=== PATIENT | male | born 1955 | race Caucasian/White ===

== ENCOUNTER 2018-01-13 10:32 | Outpatient (REF) | payer BC, SELFPAY ==
[2018-01-13 21:45] LABS: Anion Gap 12.5 mmol/L (3-11); BUN 13 mg/dL (7-18); CO2 24.5 mmol/L (21.0-32.0); CREATININE 1.07 mg/dL (0.70-1.30); Calcium 8.7 mg/dL (8.5-10.1); Chloride 101 mmol/L (98-107); Cholesterol 186 mg/dL (50-200); Glucose 122 mg/dL (70-100); HDL Cholesterol 20 mg/dL (40-60); LDL CHOLESTEROL 82 mg/dL (<100); Potassium 3.7 mmol/L (3.5-5.1); Sodium 138 mmol/L (136-145); Triglyceride 286 mg/dL (30-150)
[2018-01-13 22:02] LABS: Uric Acid 9.4 mg/dL (3.5-7.2)
== END 2018-01-13 10:52 ==
LOC: NCHCN 10:32
PROVIDERS: Visit Provider Specialist/Technologist Athletic Trainer
DX: I10 Essential (primary) hypertension (principal); Z00.00 Encounter for general adult medical examination without abnormal findings; M1A.9XX0 Chronic gout, unspecified, without tophus (tophi)
CPT/HCPCS: 80048; 80061; 83721; 84550

== ENCOUNTER 2019-11-07 11:20 | Outpatient (REF) | payer MEDICAID, SELFPAY ==
[2019-11-07 20:14] LABS: ALT 97 U/L (16-63); AST 64 U/L (15-37); Albumin 4.3 g/dL (3.4-5.0); Alkaline Phosphatase 113 U/L (46-116); Anion Gap 14.3 mmol/L (3-11); BUN 10 mg/dL (7-18); Bilirubin, Total 0.6 mg/dL (0.2-1.0); CO2 24.7 mmol/L (21.0-32.0); CREATININE 0.75 mg/dL (0.70-1.30); Calcium 9.4 mg/dL (8.5-10.1); Calculated LDL 78 mg/dL (<100); Chloride 100 mmol/L (98-107); Cholesterol 145 mg/dL (<200); Glucose 104 mg/dL (74-106); HDL Cholesterol 54 mg/dL (40-60); Potassium 3.8 mmol/L (3.5-5.1); Sodium 139 mmol/L (136-145); Total Protein 7.7 g/dL (6.4-8.2); Triglyceride 65 mg/dL (<150)
== END 2019-11-07 11:40 ==
LOC: NCHCN 11:20
PROVIDERS: Visit Provider Nurse Practitioner Family
DX: I10 Essential (primary) hypertension (principal); Z00.00 Encounter for general adult medical examination without abnormal findings
CPT/HCPCS: 80053; 80061; 83036

== ENCOUNTER 2021-12-02 13:45 | Outpatient (REF) | payer MEDICAID, SELFPAY ==
[2021-12-02 16:34] LABS: ALT 97 U/L (16-63); AST 89 U/L (15-37); Alkaline Phosphatase 109 U/L (46-116); Anion Gap 10.3 mmol/L (3-11); BUN 12 mg/dL (7-18); Bilirubin, Total 0.8 mg/dL (0.2-1.0); CO2 27.7 mmol/L (21.0-32.0); CREATININE 1.1 mg/dL (0.70-1.30); Chloride 103 mmol/L (98-107); Estimated GFR 74.96 (mL/min/1.73m2); Glucose 113 mg/dL (74-106); Potassium 3.7 mmol/L (3.5-5.1); Sodium 141 mmol/L (136-145); Total Protein 8.2 g/dL (6.4-8.2)
== END 2021-12-02 13:46 | disposition home or self-care (01) ==
LOC: NCHCN 13:45
PROVIDERS: Visit Provider Nurse Practitioner Family
DX: I10 Essential (primary) hypertension (principal); R35.1 Nocturia; M1A.9XX0 Chronic gout, unspecified, without tophus (tophi)
CPT/HCPCS: 80053

== ENCOUNTER 2022-10-02 19:40 | Emergency (ER) | payer MEDICARE, MEDICAID, SELFPAY ==
[2022-10-02] VITALS (59 sets, daily range): BP systolic 100–133; BP diastolic 46–81; PULSE 92–109; RESP 6–30; TEMP 36.3; O2SAT 96–100
--- NOTE | 2022-10-02 20:00 | RT.EKG_ITS ---
APPROVED REPORT Exam: Resting ECG Reason for Exam: SOB Patient Location: E HR:100 bpm ECG Measurements Heart Rate [address] 146 P 73 QRSd 96 QRS 24 QT 354 T [id number] QTc 457 Conclusion Sinus tachycardia...rate> 99 Nonspecific T abnormalities, lateral leads...T <-0.10mV, I aVL V5 V6 No STEMI. No previous available
--- NOTE | 2022-10-02 20:00 | DI.CT_ITS ---
Exam(s) CT HEAD CERVICAL SPINE WO EXAM: CT HEAD CERVICAL SPINE WO CLINICAL HISTORY: altered MS. TECHNIQUE: Imaging Protocol: Axial computed tomography images with coronal and sagittal reformatted images were created and reviewed COMPARISON: No exams were available for comparison FINDINGS: BRAIN: There are no skull fractures nor fluid in the visualized paranasal sinuses. There is no evidence of intracranial hemorrhage, mass effect, or shift of midline structures. There are no extra-axial fluid collections. The ventricles are not enlarged or shifted and there is no blo od within the ventricular system nor within the basal cisterns. CERVICAL SPINE: There is no evidence of fracture nor listhesis. No significant prevertebral soft tissue swelling. There is reversal of the normal curvature. Significant disc space narrowing evident at C4-5, C5-6 an d C6-7 levels. There is some facet joint arthropathy. There is no significant facet joint malalignment. No significant osseous lesions evident. IMPRESSION: No acute intracranial findings on this noninfused CT scan of the brain. No evidence of cervical spine fracture, malalignment, nor acute compromise of the cervical spinal can al. Multilevel degenerative changes and reversal of the normal curvature. RADIATION DOSE DELIVERED: 1,668.53mGy.cm Total DLP DATA REPOSITORY: All CT scans at this facility are submitted to the National Radiology Data Registry (NRDR) Dose Index Registry (DIR) with the [employer] (A[employer]). RADIATION OPTIMIZATION: All CT scans at this facility use at least one of these dose optimization te chniques: automated exposure control; mA and/or kV adjustment per patient size (includes targeted exa ms where dose is matched to clinical indication); or iterative reconstruction.
--- NOTE | 2022-10-02 20:03 | DI.CT_ITS ---
Exam(s) CT THORAX ABD/PEL CTA EXAM: CT THORAX ABD/PEL CTA CLINICAL HISTORY: rule out PE, GI bleed. TECHNIQUE: Imaging Protocol: Axial computed tomography images with coronal and sagittal reformatted images were created and reviewed CONTRAST MATERIAL: Intravenous: Omnipaque 350 Contrast volume:100 ml Oral: None COMPARISON: No exams were available for comparison FINDINGS: CHEST: AORTA: Diameter of the ascending thoracic aorta is upper normal. There is no evidence of aortic diss ection. No significant aneurysmal dilatation of the thoracic and abdominal aorta and aortoiliac segm ents are patent. Celiac and SMA patent. Renal arteries patent. CAT patent. Aortic bifurcation pat ent. No significant aneurysms in the iliac vessels. Internal iliac arteries. LUNGS: There are extensive infiltrates evident in both upper lobes as well as within the superior seg ments of both lower lobes. No associated pleural effusions. There is sparing of the right middle lo be and lingular segment of the left lung and there is relative sparing of the basal segments of both lower lobes.. There are no pleural effusions. No hilar nor mediastinal adenopathy evident. MEDIASTINUM: There is no hilar nor mediastinal adenopathy. Calcified nodule noted in the left thyroid lobe. CARDIAC: Mild cardiomegaly. No pericardial effusion. AORTA: See above.There is no evidence of aortic dissection. PULMONARY ARTERIES: No central emboli. Peripheral arteries not opacified and abundant motion artifac t prevents visualization. ABDOMEN: Images degraded by significant motion artifact. There is mild ascites perihepatic and perisplenic. LIVER: No obvious focal hepatic lesions nor dilated intrahepatic ducts. GALLBLADDER/BILIARY: No obvious gallbladder pathology. CBD is not dilated. PANCREAS: No evidence of pancreatic mass nor dilatation of the pancreatic duct. SPLEEN: Spleen is not enlarged. There are no intrasplenic lesions. ADRENALS: There are no significant adrenal masses. KIDNEYS: There is moderate bilateral hydronephrosis and hydroureter. The urinary bladder is grossly distended. Prostate gland is enlarged, measuring 5 by 4.5 cm. No calculi nor hydronephrosis. No michael id renal masses. ABDOMINAL AORTA: The abdominal aorta is not enlarged. LYMPH NODES: There is no retroperitoneal nor para-aortic adenopathy. No obvious mesenteric masses. ABDOMINAL WALL: There is an anterior abdominal wall umbilical hernia. This contains a bowel loop. N o obvious bowel obstruction. GI: There is no evidence of bowel obstruction, free air, nor abscess. PELVIS: LYMPH NODES: There is no intrapelvic nor inguinal adenopathy. GI: Difficult to identify the appendix.Colitis pattern versus under distension. No obvious diverticu litis evident URINARY BLADDER: Grossly distended REPRODUCTIVE: Enlarged measuring 5 x 4.5 cm. OSSEOUS: No significant osseous lesions. Multilevel Schmorl's node superior endplate invagination evident in the upper lumbar spine. No acute compression fractures evident. IMPRESSION: 1. Extensive bilateral pulmonary infiltrates consistent with extensive pneumonia involving both upper lobes and superior segments of both lower lobes. No pleural effusions evident. No obvious intratho racic adenopathy. 2. No evidence of aortic dissection. No aneurysm. 3. Severe distention of the urinary bladder which appears to be related to enlarged prostate gland an d there is symmetrical moderate-severe bilateral hydronephrosis and hydroureter. 4. Thickening of the entire colon wall which is either related to element of colitis or related to la ck of distention with oral contrast. Difficult to assess given the amount of motion artifact here. There is mild ascites. RADIATION DOSE DELIVERED: 807.52mGy.cm Total DLP DATA REPOSITORY: All CT scans at this facility are submitted to the National Radiology Data Registry (NRDR) Dose Index Registry (DIR) with the [employer] (ACR). RADIATION OPTIMIZATION: All CT scans at this facility use at least one of these dose optimization te chniques: automated exposure control; mA and/or kV adjustment per patient size (includes targeted exa ms where dose is matched to clinical indication); or iterative reconstruction.
[2022-10-02 20:23] LABS: Abs Immature Grans 0.54 10^3/uL (0.0-0.06); HCT 25.3 % (40.0-50.0); MCH 31.1 pg (27.0-33.0); MCHC 35.6 % (32.0-36.0); MCV 88 fL (80-95); MPV 8.6 fL (8.0-11.0); Platelet Count 181 10^3/uL (130-400); RBC 2.89 10^6/uL (4.36-5.78); RDW 12.5 % (11.8-14.1); RDW-SD 40.1 fL
[2022-10-02 20:35] LABS: INR 1.6 (0.9-1.1); Prothrombin Time 16.5 sec (9.3-11.0)
[2022-10-02 20:37] LABS: PTT Activated 43.2 sec (21.5-31.9)
[2022-10-02 20:38] LABS: Ammonia 95 umol/L (11-32)
[2022-10-02 20:39] LABS: ALT 22 U/L (16-63); AST 40 U/L (15-37); Albumin 3.3 g/dL (3.4-5.0); Alkaline Phosphatase 127 U/L (46-116); Bilirubin, Total 0.5 mg/dL (0.2-1.0); Calcium 8.1 mg/dL (8.5-10.1); Chloride 100 mmol/L (98-107); Glucose 111 mg/dL (74-106); Potassium 5.1 mmol/L (3.5-5.1); Sodium 139 mmol/L (136-145); Total Protein 7.4 g/dL (6.4-8.2)
[2022-10-02 20:40] LABS: Absolute Basophil Count 0.23 10^3/uL (0.0-0.2); Absolute Eosinophil Count 0.23 10^3/uL (0.0-0.7); Absolute Lymphocyte Count 0.46 10^3/uL (1.2-3.4); Absolute Monocyte Count 1.39 10^3/uL (0.1-0.8); Absolute Neutrophil Count 20.88 10^3/uL (1.2-6.7); Bands % 1
[2022-10-02 20:41] LABS: Diff Comment Manual Differential; Polychromasia Present
[2022-10-02 20:44] LABS: Troponin I 77 ng/L (<or=60)
[2022-10-02 20:46] LABS: Estimated GFR 1.96 (mL/min/1.73m2)
[2022-10-02 20:47] LABS: Anion Gap 34.00001 mmol/L (3-11); BUN 188 mg/dL (7-18); CO2 < 5.0 mmol/L (21.0-32.0); CREATININE 22.8 mg/dL (0.70-1.30)
[2022-10-02 20:49] LABS: Magnesium 2.6 mg/dL (1.8-2.4); NT-proBNP 11568 pg/mL (<300)
[2022-10-02 20:51] LABS: Lipase > 375 U/L (16-77)
[2022-10-02 20:56] LABS: D-Dimer 6470 ng/mlFEU (<500)
[2022-10-02] MEDS: MAGNESIUM SULFATE 8.12 MEQ, MULTIVITAMIN 10 ML, THIAMINE 100 MG, FOLIC ACID 1 MG in Nor... 168.867 MG IV (21:10)
[2022-10-02] MEDS: Famotidine 20 MG/2 ML VIAL IVP (21:10)
[2022-10-02] MEDS: Omnipaque 350 MG/ML 100 ML BTL IJ (21:15)
[2022-10-02] MEDS: Albuterol/Ipratropium 3 ML UPD VIAL UPD (21:17)
[2022-10-02] MEDS: Normal Saline - Diluent 50 ML VIAL IJ (21:17)
[2022-10-02] MEDS: Octreotide 100 MCG/ML VIAL IVP (21:21)
--- NOTE | 2022-10-02 21:40 | DI.VRAD_ITS ---
PROCEDURE INFORMATION: Exam: CTA Chest With Contrast CTA Abdomen and Pelvis With Contrast Exam date and time: 10/02/2022 9:04 PM Age: 67 years old Clinical indication: Dyspnea and shortness of breath and other: Rule out pe, ? gi bleed TECHNIQUE: Imaging protocol: Computed tomographic angiography of the chest with contrast. Exam focused on the arteries. Computed tomographic angiography of the abdomen and pelvis with contrast. Exam focused on the arteries. 3D rendering (Not supervised by radiologist): MIP and/or 3D reconstructed images were created by the technologist. Radiation optimization: All CT scans at this facility use at least one of these dose optimization techniques: automated exposure control; mA and/or kV adjustment per patient size (includes targeted exams where dose is matched to clinical indication); or iterative reconstruction. Contrast material: OMNI 350; Contrast volume: 100 ml; Contrast route: INTRAVENOUS (IV); COMPARISON: CT HEAD CERVICAL SPINE WO 10/02/2022 8:58 PM FINDINGS: VASCULATURE: Pulmonary arteries: No evidence of pulmonary embolus in the lobar or segmental branches of pulmonary arteries. Study is suboptimal for exclusion of pulmonary embolus in some of the subsegmental branches secondary to motion related artifact seen throughout the study. Aorta: No evidence of aortic dissection or aneurysm. Celiac trunk and mesenteric arteries: No occlusion or significant stenosis. Renal arteries: No occlusion or significant stenosis. Right iliac arteries: No occlusion or significant stenosis. Left iliac arteries: No occlusion or significant stenosis. CHEST: Lungs: Large areas of dense parenchymal disease is seen in bilateral lower lobes and superior segments of bilateral upper lobes. Pleural spaces: Unremarkable. No pneumothorax. No pleural effusion. Heart: Unremarkable. No cardiomegaly. No pericardial effusion. ABDOMEN AND PELVIS: Liver: No mass. Gallbladder and bile ducts: Unremarkable. No calcified stones. No ductal dilation. Pancreas: Unremarkable. No mass. No ductal dilation. Spleen: Spleen is mildly enlarged measuring 13.8 cm in AP dimension. Adrenal glands: Unremarkable. No mass. Kidneys and ureters: See Urinary bladder finding. No mass lesion is seen. No areas of abnormal cortical enhancement in kidneys to suggest pyelonephritis. Stomach and bowel: Diffuse wall thickening is seen in the colon extending from cecum to the rectum. No active extravasation of contrast is seen in the stomach or the colon. Appendix: No evidence of appendicitis. Intraperitoneal space: Small to moderate amount of perihepatic fluid. Finding is consistent with ascites. Small amount of perisplenic fluid. Urinary bladder: Severe bladder distention with moderate to severe bilateral hydronephrosis and hydroureter. Reproductive: Prostate is mildly enlarged measuring 5.5 x 5.2 cm. Lymph nodes: Unremarkable. No enlarged lymph nodes. Bones/joints: Unremarkable. No acute fracture. Soft tissues: Unremarkable. IMPRESSION: 1. Large areas of dense parenchymal disease is seen in bilateral lower lobes and superior segments of bilateral upper lobes. Findings appear to represent mild bacterial pneumonias. 2. Suboptimal evaluation of pulmonary arteries due to motion artifact throughout the study. No evidence of pulmonary embolism seen. 3. Severe bladder distention with moderate to severe bilateral hydronephrosis and hydroureter. Finding is consistent with bladder outlet obstruction. 4. Prostate is mildly enlarged measuring 5.5 x 5.2 cm. 5. Diffuse wall thickening is seen in the colon extending from cecum to the rectum. Finding is consistent with pancolitis. 6. No active extravasation of contrast is seen on the study. Dictated and Authenticated by: Antoine Mcginnis MD. Ordering:SAMANTA Sarabia MD
--- NOTE | 2022-10-02 21:42 | DI.VRAD_ITS ---
PROCEDURE INFORMATION: Exam: CT Head Without Contrast Exam date and time: 10/02/2022 8:58 PM Age: 67 years old Clinical indication: Other: Altered mental status; Other: AMS TECHNIQUE: Imaging protocol: Computed tomography of the head without contrast. COMPARISON: No relevant prior studies available. FINDINGS: Brain: Diffuse cerebral atrophy. This is of [id number] severity. No intracranial hemorrhage. No mass. No edema. No large territory CVA. Cerebral ventricles: No ventriculomegaly. Paranasal sinuses: No sinus air-fluid levels. Mastoid air cells: Visualized mastoid air cells are well aerated. Bones/joints: No skull fracture. Soft tissues: Unremarkable. IMPRESSION: 1. No intracranial hemorrhage. 2. Cerebral atrophy. 3. Motion artifact degradation of image quality. PROCEDURE INFORMATION: Exam: CT Cervical Spine Without Contrast Exam date and time: 10/02/2022 8:58 PM Age: 67 years old Clinical indication: Other: Altered mental status; Other: AMS TECHNIQUE: Imaging protocol: Computed tomography of the cervical spine without contrast. COMPARISON: No relevant prior studies available. FINDINGS: Bones/joints: Degenerative cervical spine changes. No acute fracture. Mid cervical kyphosis with nonspecific appearance. Moderate degenerative disc disease at C3-C4. Severe degenerative disc disease at C4-C5, C5-C6, and C6-C7. Multilevel degenerative facet disease. No facet dislocation or subluxation. Lungs: Lung apices are normal. Soft tissues: Unremarkable. IMPRESSION: 1. Degenerative cervical spine changes. 2. No fracture or dislocation. 3. Motion artifact degradation of image quality. Dictated and Authenticated by: Chas Goodwin MD. Ordering:SAMANTA Sarabia MD
--- NOTE | 2022-10-02 22:05 | ED.PROG_ITS ---
Date of service: 10/02/22 Time of Service: 20:00 Medical Decision Making Lab Data Lab results reviewed: Yes I reviewed the patient's lab results. Lab results narrative: The patient is in renal failure. He is anemic and having active GI bleeding. He is in congestive heart failure and has a positive troponin. His EKG does not show any acute ST elevation. I have spoken with the hospitalist who request that we attempt to transfer the patient. We are sending the patient's CTs and copies of the EKG to [facility] [place] Data Attestation: I personally reviewed and interpreted this ECG (s) as follows: Prior ECG tracings: available for review Narrative The patient is is in renal failure and received IV contrast. I have written for [facility] and I have paged the hospitalist. Discharge Plan Discharge Details Chief Complaint: SOB Primary Care Provider: None,None ED Provider: No Caraballo
[2022-10-02] MEDS: Furosemide 20 MG/2 ML VIAL IVP (22:15)
--- NOTE | 2022-10-02 22:25 | ED.GENADUL_ITS ---
Discharge Plan Disposition Patient Disposition: Transfer-Acute Inpatient Care Specific Acute Inpt Facility: [facility] Discharge Details Clinical Impression: Acute kidney injury, Acute non-Q wave non-ST elevation myocardial infarction (NSTEMI), CHF (congestive heart failure), Pancolitis, Bilateral pneumonia, Acute urinary retention Primary Care Provider: None,None ED Provider: No Caraballo Discharge Data Discharge Physician: No Caraballo Medical Decision Making This is an acutely ill patient who has no prior medical records who presents with shortness of breath and a right swollen lower extremity. He was also short of breath and having active GI bleeding. My plan is to obtain a CT of the head and neck without contrast and CT of the chest abdomen and pelvis with IV contrast to rule out PE. His EKG does not show evidence of ST elevation MN and he is denying any chest pain. The patient's renal function came back after his CT and he is in acute renal failure. He has been discussed with the hospitalist who requested that we transfer him to a another facility and [facility] will be able to take him this evening Differential Diagnosis Differential Diagnosis: PE, CHF, AMI, renal failure, pneumonia Medical Records Medical records reviewed: Yes I reviewed the patient's medical records. Imaging Data Radiologic Study: Imaging: CT Scan Radiologist's impression: CTA chest with IV contrast, CT head with C-spine, CT abdomen and pelvis with IV contrast the patient has large areas of dense parenchymal disease in the bilateral lower lobes and superior segments of the bilateral upper lobes. Findings appear to represent mild bacterial pneumonias. #2 suboptimal evaluation of the pulmonary arteries due to motion artifact throughout the study. No evidence of pulmonary embolism seen. #3 severe bladder distention with moderate to severe bilateral hydronephrosis and hydroureter. Finding is consistent with bladder outlet obstruction. #3 your prostate is mildly enlarged measuring 5.5 x 5.2 cm. #5 diffuse wall thickening is seen in the colon extending from the cecum to the rectum. Finding is consistent with pancolitis. #6 no active extravasation of contrast seen in the study. Head CT #1 no intracranial hemorrhage. #2 cerebral atrophy. #3 Motion artifact degradation of image quality. C-spine impression #1 degenerative C-spine changes. #2 no fracture or dislocation #3 Motion artifact degradation of image quality. HPI General Date/Time Provider Initiated Documentation: 10/02/22 19:58 . HPI Narrative: Time seen was on arrival in bed 8 and then bed 1. Patient is a 67-year-old male who is unable to give us a detailed history and there are no previous medical records available. The patient tells me that his neighbors called EMS because they were concerned because they had not seen him. He was noted to be very short of breath on arrival. He is not sure how long he has been short of breath for. He denies any chest pain. He is only complaining of right leg pain and swelling not associated with trauma. He does have a history of heavy alcohol use but states he has not had anything to drink in several weeks. He is denying any chest pain or falls. He is only on amlodipine but cannot tell me the dose. He tells me he has no history of respiratory issues in the past and has no history of coronary artery disease or MN. He tells me he is not on any therapeutic anticoagulants. The patient's only complaint is of right lower leg pain which is intermittent. The history is limited by the patient's altered mental status. He is oriented to person and place. When asked what year it was he said 1023. General Stated Complaint: SOB GLENNY: 3 Review of Systems Cardiovascular Cardiovascular: Denies chest pain Musculoskeletal Comments: Right calf pain and swelling PFSH All Active Problems (Updated 10/02/22 @ 23:22 by No Caraballo MD) Acute kidney injury (Acute) Acute non-Q wave non-ST elevation myocardial infarction (NSTEMI) (Acute) CHF (congestive heart failure) (Chronic) Pancolitis (Acute) Bilateral pneumonia (Acute) Acute urinary retention (Acute) Social History Smoking/Tobacco Use Status: Never Smoking risk assessment performed?: Yes Substance use type: marijuana Housing: house Exam Const Other: The patient is a well-developed male who is dyspneic at rest. His sats are 100%. He is normotensive and borderline tachycardic. He is slow to respond and appears extremely pale. [facility] Head: normal to inspection, no palpable skull fracture, normocephalic, atraumatic, no acral cyanosis and no Vazquez's sign Ears: hearing grossly normal bilaterally, external ears normal and mastoids normal General nose exam: external nose normal Mouth: other (Mucous membranes appear dry) Teeth and gingiva: other (No bleeding of the gingiva) Throat: posterior oropharynx normal Eyes Other: His pupils are reactive to light. Conjunctiva are pale. There is no scleral icterus. Extraocular muscles are intact. No photophobia Neck Neck: normal visual inspection, full ROM, no meningeal signs and trachea midline Chest Other: Mild gynecomastia. No chest wall tenderness. No subcutaneous emphysema. Resp Other: The patient is tachypneic at rest. He has a prolongation of his expiratory phase and diffuse expiratory wheezing. I cannot appreciate rhonchi or rales Cardio Jugular venous pressure: JVD Palpation: normal PMI Rate: tachycardic Heart Sounds: S1 normal, S2 normal, gallop S3 gallop, murmur and no rubs Pulses: dorsalis pedis present GI Other: His abdomen is protuberant. It was soft nontender and mildly distended. He has slightly diminished bowel sounds. Normal external male genitalia. Grossly bloody heme positive stool on rectal exam Skin Other: Skin is pale for ethnicity. I cannot appreciate any purpura or petechiae Neuro Other: The patient is alert and awake but is slow to answer questions and is oriented to person place but stated that the year was 1023. Cranial nerves II through XII are intact. He is moving all of his extremities. There is no gross focal neurologic deficits Extrem Other: He is moving all of his extremities normally. He has only mild peripheral edema. The patient does have swelling and tenderness of the right calf. Course Reevaluation(s) Initial Evaluation: The patient was found to be in acute renal failure with an elevated troponin and elevated BNP. The patient did receive IV contrast because his CT was done prior to his lab work being resulted. I informed the patient and we have attempted to transfer him to [facility] after hospitalist declined admission here. Did not th ink they had availability relating here from [facility] Time: 22:33 Reevaluation: I have heard from [facility] and they can accept the patient if he does not require dialysis tonight I do not believe that the patient will require dialysis tonight and he is a clean urine. He does not have hyperacute T waves and his potassium is 5. I have given him 20 mg of IV Lasix and he is put out almost 2 L of urine. Time: 23:10 Reevaluation #2: The [place] [facility] [place] Consultations Consultation #1: Hospitalist declined I and EMS Vital Signs Vital signs: Vital Signs Pulse 101 H 10/02/22 19:41 Respiratory Rate 25 H 10/02/22 19:41 Blood Pressure 118/75 10/02/22 19:41 Pulse Oximetry 98 10/02/22 19:41 Pulse 105 H 10/02/22 21:36 Pulse 105 H 10/02/22 21:36 Respiratory Rate 24 10/02/22 21:36 Respiratory Effort Short of Breath, Labored 10/02/22 19:58 Respiratory Depth Deep 10/02/22 19:58 Respiratory Pattern Tachypnea 10/02/22 19:58 Blood Pressure 133/79 10/02/22 21:36 Blood Pressure Mean 91 10/02/22 21:36 Pulse Oximetry 98 10/02/22 21:36 Respiratory End-tidal CO2 12 10/02/22 21:36 Oxygen Delivery Method Room Air 10/02/22 21:17 Oxygen Flow Rate 0 10/02/22 21:17 Lab/Test Results Lab/Test Results: Laboratory Tests Range/Units 10/02/22 10/02/22 10/02/22 20:08 20:08 20:08 WBC (4.4-10.8) 10^3/uL 23.20 H RBC (4.36-5.78) 10^6/uL 2.89 L Hgb (13.5-17.5) g/dL 9.0 L Hct (40.0-50.0) % 25.3 L MCV (80-95) fL 88 MCH (27.0-33.0) pg 31.1 MCHC (32.0-36.0) % 35.6 RDW (11.8-14.1) % 12.5 Plt Count (130-400) 10^3/uL 181 MPV (8.0-11.0) fL 8.6 Immature Gran % 0.0 Neutrophils % 89.0 Band Neutrophils % 1 Lymphocytes % 2.0 Monocytes % 6.0 Eosinophils % 1.0 Basophils % 1.0 Nucleated RBC % (0.0-0.3) % 0.0 Absolute Neutrophils (1.2-6.7) 10^3/uL 20.88 H Absolute Lymphocytes (1.2-3.4) 10^3/uL 0.46 L Absolute Monocytes (0.1-0.8) 10^3/uL 1.39 H Absolute Eosinophils (0.0-0.7) 10^3/uL 0.23 Absolute Basophils (0.0-0.2) 10^3/uL 0.23 H RBC Morphology See Below Polychromasia Present PT (9.3-11.0) sec 16.5 H INR (0.9-1.1) 1.6 H APTT (21.5-31.9) sec D-Dimer (<500) ng/mlFEU 6470 H Sodium (136-145) mmol/L Potassium (3.5-5.1) mmol/L Chloride (98-107) mmol/L Carbon Dioxide (21.0-32.0) mmol/L Anion Gap (3-11) mmol/L BUN (7-18) mg/dL Creatinine (0.70-1.30) mg/dL Est GFR (CKD-EPI 2020) (mL/min/1.73m2) Glucose (74-106) mg/dL Calcium (8.5-10.1) mg/dL Magnesium (1.8-2.4) mg/dL Total Bilirubin (0.2-1.0) mg/dL AST (15-37) U/L ALT (16-63) U/L Alkaline Phosphatase (46-116) U/L Ammonia (11-32) umol/L Troponin I (<or=60) ng/L 77 H* NT-Pro-B Natriuret Pep (<300) pg/mL Total Protein (6.4-8.2) g/dL Albumin (3.4-5.0) g/dL Lipase (16-77) U/L > 375 H Patient ABO/Rh Antibody Screen Crossmatch Range/Units 10/02/22 10/02/22 10/02/22 20:08 20:08 20:08 WBC (4.4-10.8) 10^3/uL RBC (4.36-5.78) 10^6/uL Hgb (13.5-17.5) g/dL Hct (40.0-50.0) % MCV (80-95) fL MCH (27.0-33.0) pg MCHC (32.0-36.0) % RDW (11.8-14.1) % Plt Count (130-400) 10^3/uL MPV (8.0-11.0) fL Immature Gran % Neutrophils % Band Neutrophils % Lymphocytes % Monocytes % Eosinophils % Basophils % Nucleated RBC % (0.0-0.3) % Absolute Neutrophils (1.2-6.7) 10^3/uL Absolute Lymphocytes (1.2-3.4) 10^3/uL Absolute Monocytes (0.1-0.8) 10^3/uL Absolute Eosinophils (0.0-0.7) 10^3/uL Absolute Basophils (0.0-0.2) 10^3/uL RBC Morphology Polychromasia PT (9.3-11.0) sec INR (0.9-1.1) APTT (21.5-31.9) sec 43.2 H D-Dimer (<500) ng/mlFEU Sodium (136-145) mmol/L 139 Potassium (3.5-5.1) mmol/L 5.1 Chloride (98-107) mmol/L 100 Carbon Dioxide (21.0-32.0) mmol/L < 5.0 L* Anion Gap (3-11) mmol/L 34.41676 H BUN (7-18) mg/dL 188 H* Creatinine (0.70-1.30) mg/dL 22.8 H* Est GFR (CKD-EPI 2020) (mL/min/1.73m2) 1.96 Glucose (74-106) mg/dL 111 H Calcium (8.5-10.1) mg/dL 8.1 L Magnesium (1.8-2.4) mg/dL Total Bilirubin (0.2-1.0) mg/dL 0.5 AST (15-37) U/L 40 H ALT (16-63) U/L 22 Alkaline Phosphatase (46-116) U/L 127 H Ammonia (11-32) umol/L Troponin I (<or=60) ng/L NT-Pro-B Natriuret Pep (<300) pg/mL Total Protein (6.4-8.2) g/dL 7.4 Albumin (3.4-5.0) g/dL 3.3 L Lipase (16-77) U/L Patient ABO/Rh O Positive Antibody Screen NEGATIVE Crossmatch See Detail Range/Units 10/02/22 10/02/22 20:08 20:18 WBC (4.4-10.8) 10^3/uL RBC (4.36-5.78) 10^6/uL Hgb (13.5-17.5) g/dL Hct (40.0-50.0) % MCV (80-95) fL MCH (27.0-33.0) pg MCHC (32.0-36.0) % RDW (11.8-14.1) % Plt Count (130-400) 10^3/uL MPV (8.0-11.0) fL Immature Gran % Neutrophils % Band Neutrophils % Lymphocytes % Monocytes % Eosinophils % Basophils % Nucleated RBC % (0.0-0.3) % Absolute Neutrophils (1.2-6.7) 10^3/uL Absolute Lymphocytes (1.2-3.4) 10^3/uL Absolute Monocytes (0.1-0.8) 10^3/uL Absolute Eosinophils (0.0-0.7) 10^3/uL Absolute Basophils (0.0-0.2) 10^3/uL RBC Morphology Polychromasia PT (9.3-11.0) sec INR (0.9-1.1) APTT (21.5-31.9) sec D-Dimer (<500) ng/mlFEU Sodium (136-145) mmol/L Potassium (3.5-5.1) mmol/L Chloride (98-107) mmol/L Carbon Dioxide (21.0-32.0) mmol/L Anion Gap (3-11) mmol/L BUN (7-18) mg/dL Creatinine (0.70-1.30) mg/dL Est GFR (CKD-EPI 2020) (mL/min/1.73m2) Glucose (74-106) mg/dL Calcium (8.5-10.1) mg/dL Magnesium (1.8-2.4) mg/dL 2.6 H Total Bilirubin (0.2-1.0) mg/dL AST (15-37) U/L ALT (16-63) U/L Alkaline Phosphatase (46-116) U/L Ammonia (11-32) umol/L 95 H Troponin I (<or=60) ng/L NT-Pro-B Natriuret Pep (<300) pg/mL 52095 H Total Protein (6.4-8.2) g/dL Albumin (3.4-5.0) g/dL Lipase (16-77) U/L Patient ABO/Rh Antibody Screen Crossmatch Critical Care Time Critical Care Time Critical Care Time: Yes Total Critical Care Time: 50 Attestation: I have spent time at the bedside, reviewing the patient's EKGs and radiographs and discussing with consults and most
[2022-10-02] MEDS: Lidocaine 2% Jelly 6 ML SYR (22:51)
[2022-10-02] MEDS: PIPERACILLIN/TAZO 3.375 GM in Normal Saline 50 ML IVPB (23:19)
[2022-10-02 23:34] LABS: COVID-19 PCR Negative (Negative); Influenza A PCR Negative (Negative); Influenza B PCR Negative (Negative); RSV PCR Negative (Negative)
[2022-10-02 23:40] LABS: Source Nasopharynx
[2022-10-03] VITALS (80 sets, daily range): BP systolic 91–138; BP diastolic 33–80; PULSE 96–102; RESP 6–29; TEMP 36.4; O2SAT 81–100
[2022-10-03 01:04] LABS: Troponin I 83 ng/L (<or=60)
[2022-10-03 01:27] LABS: HCO3 5 mmol/L (22-26); pCO2 22 mmHg (35-45); pO2 80 mmHg (80-105); sO2 92 % (95-98); tCO2 5 mmol/L (23-27)
[2022-10-03 01:29] LABS: BE -27 mmol/L (-2-3); pH 6.95 (7.35-7.45)
[2022-10-03 01:30] LABS: FIO2 21 %; Site Left Radial
[2022-10-03] MEDS: Sodium Bicarbonate 50 MEQ/50 ML SYR 25 MEQ IVP (01:41)
[2022-10-03 02:15] LABS: HCO3 5 mmol/L (22-26); pO2 122 mmHg (80-105); sO2 98 % (95-98); tCO2 5 mmol/L (23-27)
[2022-10-03 02:18] LABS: BE -26 mmol/L (-2-3); FIO2 28 %; Site Left Radial; pCO2 18 mmHg (35-45); pH 7.03 (7.35-7.45)
--- NOTE | 2022-10-03 02:18 | ED.PROG_ITS ---
Narrative the patient's initial transfer was discontinued because a bed was not assigned. The patient now has a blood and dark ground is in route. The patient was discussed with Kym the critical care fellow who asked that we start a bicarb drip at 75 mL an hour Discharge Plan Disposition Patient Disposition: Transfer-Acute Inpatient Care Specific Acute Inpt Facility: [facility] Discharge Details Clinical Impression: Acute kidney injury, Acute non-Q wave non-ST elevation myocardial infarction (NSTEMI), CHF (congestive heart failure), Pancolitis, Bilateral pneumonia, Acute urinary retention Primary Care Provider: None,None ED Provider: No Caraballo Discharge Data Discharge Physician: No Caraballo
[2022-10-03] MEDS: SODIUM BICARBONATE 150 MEQ in DEXTROSE 5%-WATER 850 ML 75 MEQ IV (02:50)
--- NOTE | 2022-10-03 03:46 | NUR.NOTE ---
Nursing Note: Earlier in the evening the UC on duty paged the RT and then was told by the provider that it was not necessary for the RT to come in. The patient was having some signs of distress in his breathing. The RT did not come in per provider request. The EMT on shift asked the provider if he could put an end tidal on the patient and the provider stated that it was not necessary for that. The EMT proceeded to put the end tidal on anyways and this resulted in us being able to see that the patient was not blowing off CO2 with an end tidal of 12. This was brought to the attention of the provider and no new orders were given at that time. This RN then brought it to the providers attention again and she then stated that we needed to call in the RT and that BiPap may be a good idea. At this time time RT was paged again and she came into the room and adjusted the bipap that was initiated by the nursing staff. The Bipap continued to be managed by the RT.
--- NOTE | 2022-10-03 09:17 | ED.GENADUL_ITS ---
Discharge Plan Disposition Patient Disposition: Transfer-Acute Inpatient Care Specific Acute Inpt Facility: [facility] Discharge Details Clinical Impression: Acute kidney injury, Acute non-Q wave non-ST elevation myocardial infarction (NSTEMI), CHF (congestive heart failure), Pancolitis, Bilateral pneumonia, Acute urinary retention Primary Care Provider: None,None ED Provider: No Caraballo Home Meds and New Rx's Prescriptions: No Action ibuprofen 800 mg tablet 800 mg PO TID PRN (Reason: pain) Qty: 21 0RF indomethacin 50 mg capsule 50 mg PO TID Rx Instructions: administer with food or milk amlodipine 10 mg tablet 10 mg PO DAILY naproxen sodium [Aleve] 220 MG capsule 440 mg PO PRN Discharge Data Discharge Date/Time-TO BE ENTERED AT DEPARTURE: 10/03/22 04:01 Discharge Physician: No Caraballo Medical Decision Making This is a 67-year-old male who presents with shortness of breath and significant pallor. He is heme positive and I am concerned he has decreased oxygen carrying capacity leading to his shortness of breath since his sats have remained within normal limits. He is GI bleeding but does not have any chest pain or signs of pneumonia. He denies any abdominal pain. He has been using 3 nonsteroidal anti-inflammatories which could be the source of his GI bleeding. Other considerations are CHF, pneumonia, COVID, pneumothorax and COPD. My plan is to type and screen him and likely transfuse him 2 units. I will order a CT scan of his head since he appears to be mildly altered. I will order a CT of the chest abdomen and pelvis with IV contrast to rule out any trauma and PE. He does have a swollen right lower extremity which preceded his shortness of breath and I am concerned may have a PE as well. I have ordered supplemental oxygen and we will check his blood work renal function and LFTs. Differential Diagnosis Differential Diagnosis: PE, CHF, pneumonia, anemia, ME Medical Records Medical records reviewed: Yes I reviewed the patient's medical records. Imaging Data Radiologic Study: Imaging: CT Scan (Chest abdomen and pelvis with IV contrast) Radiologist's impression: V rad impression: #1 large areas of dense parenchymal disease is seen in the bilateral lower lobes and superior segments of the bilateral upper lobes. Findings appear to represent mild bacterial pneumonias. #2 suboptimal evaluation of pulmonary arteries due to motion artifact throughout the study. No evidence of pulmonary embolism seen. #3 severe bladder distention with mo derate to severe bilateral hydronephrosis and hydroureter. Finding is consistent with bladder outlet obstruction. #4 prostate is mildly enlarged measuring 5.5 x 5.2 cm. #5 diffuse wall thickening is seen in the colon extending from the cecum to the rectum. Finding is consistent with pancolitis. #6 no acute extravasation of contrast is seen on the study. Radiologic Study #2: Imaging: CT Scan (CT head without contrast) Radiologist's impression: 1. No intracranial hemorrhage. #2 cerebral atrophy. #3 Motion artifact degradation of image quality. Radiologic Study #3: Imaging: CT Scan (CT cervical spine without contrast) Radiologist's impression: vRad impression: #1 degenerative cervical spine changes. #2 no fracture or dislocation. #3 Motion artifact degradation of image quality. Lab Data Lab results reviewed: Yes I reviewed the patient's lab results. Lab results narrative: Acute renal failure with a potassium of 5 but no evidence of hyperkalemia on ECG. Anemia with an H&H of 9 and 25 with active bleeding. Leukocytosis with a white count of 23.2. Coagulopathy with an INR of 1.6 and elevated PT and INR. Elevated D-dimer at 6470. Severe acidosis with a bicarb less than 5 mild hyperglycemia, mild hypocalcemia, mild hypermagnesemia. Elevated ammonia at 95. Positive troponin greater than 70. Elevated BNP. Elevated lipase consistent with pancreatitis, severe acidosis with an initial ABG demonstrating a pH of 6.950 PCO2 of 21 and PO2 of 79.8. Repeat blood gas after bicarb and IV Lasix and BiPAP showed an improvement with the pH of 7.03. PCO2 of 18 and PO2 of 122. ECG Data Attestation: I personally reviewed and interpreted this ECG (s) as follows: Prior ECG tracings: available for review HPI General Mode of arrival: EMS . Date/Time Provider Initiated Documentation: 10/02/22 19:58 . HPI Narrative: Time seen was 1944. The patient is complaining of shortness of breath. He is a poor historian and his history is limited by his shortness of breath. He also has some mild cognitive deficits, for example when I asked him the year he said 1022, instead of 2022. When I asked him why he came to the hospital he said his neighbors for concerned about him because they had not seen him for several days. He states he has been progressively short of breath for about a week but that it became worse over the past 1 to 2 days. The patient denied any history of heart disease or pulmonary pathology. He said he does have a history of hypertension and believed he was on amlodipine, but was not sure of the name of the dosage of his medications. He denied any pain, fever or or cough. He denied any falls or trauma. He did endorse some dizziness and generalized weakness. He denied any chest pain. He denies any previous similar episodes. According to his medication list he was on possibly 3 nonsteroidal anti-infl ammatories, ibuprofen, naproxen and indomethacin. He also has a history of heavy alcohol use but denied any history of DTs. Unfortunately there were no past medical records available and his history of present illness was limited by his cognition and shortness of breath Related Data Home Medications Medication Instructions Recorded Confirmed naproxen sodium 220 mg capsule 440 mg PO PRN 09/05/12 09/05/12 (Aleve) ibuprofen 800 mg tablet 800 mg PO TID PRN pain #21 tabs 10/08/18 10/08/18 amlodipine 10 mg tablet 10 mg PO DAILY 12/04/21 indomethacin 50 mg capsule 50 mg PO TID 12/04/21 Previous Rx's Medication Instructions Recorded ibuprofen 800 mg tablet 800 mg PO TID PRN pain #21 tabs 10/08/18 Allergies Allergy/AdvReac Type Severity Reaction Status Date / Time No Known Allergies Allergy Unverified 10/03/22 07:20 General Stated Complaint: SOB GLENNY: 3 Review of Systems Constitutional Constitutional: Denies headache(s) ENT Ears, Nose, Mouth, and Throat: Reports dizziness and Denies headache(s) Cardiovascular Cardiovascular: Reports as per HPI, Denies chest pain, Denies chest pain with activity, Denies syncope, Reports lightheadedness and Reports dyspnea Respiratory Respiratory: Reports as per HPI, Denies hemoptysis, Denies pain on inspiration and Reports dyspnea Gastrointestinal Gastrointestinal: Reports as per HPI, Reports melena, Reports bloating, Denies vomiting and Denies hematemesis Musculoskeletal Musculoskeletal: Denies numbness and Denies tingling Neurologic Neurologic: Reports dizziness, Denies syncope, Denies headache(s), Denies localized weakness, Denies numbness and Denies tingling Psychiatric Psychiatric: Reports anxiety Hematologic/Lymphatic Comments: The patient denies any therapeutic anticoagulants PFSH All Active Problems Acute kidney injury (Acute) Acute non-Q wave non-ST elevation myocardial infarction (NSTEMI) (Acute) CHF (congestive heart failure) (Chronic) Pancolitis (Acute) Bilateral pneumonia (Acute) Acute urinary retention (Acute) Anxiety (Chronic) Prediabetes (Acute) Nocturia (Acute) BPH (benign prostatic hyperplasia) (Chronic) Hypertension (Chronic) Low back pain (Acute) Medical History Gout Social History Smoking/Tobacco Use Status: Never Smoking risk assessment performed?: Yes Alcohol Intake: current Alcohol Intake frequency: a few times a month Drug use: Never Substance use type: marijuana Housing: house Exam Narrative Exam Narrative: The patient is a thin pale male sitting upright on the stretcher obviously dyspneic at rest and unable to speak in full sentences. His initial blood pressure was not hypotensive but was borderline tachycardic. He appeared pale and was mildly diaphoretic. Const General: cooperative, in distress (Respiratory) moderate and respiratory, diaphoretic and ill appearing Nutritional Appearance: thin Orientation: alert, awake, oriented to person, oriented to place, oriented to time (The patient stated that the year was 1023) and confused Limitations: physical limitations (Shortness of breath) [facility] Head: normal to inspection, no palpable skull fracture, normocephalic, atraumatic and no acral cyanosis Ears: hearing grossly normal bilaterally and TM's normal bilaterally General nose exam: external nose normal Face and sinus: normal facial exam Mouth: moist mucous membranes abnormal (Dry mucous membranes) Throat: posterior oropharynx normal Eyes Conjunctivae: conjunctival abnormality bilaterally pallor Sclera: sclerae normal Pupils: PERRL EOM: EOM intact bilaterally Other: No photophobia Neck Neck: normal visual inspection, full ROM, no lymphadenopathy, no meningeal signs, trachea midline and supple Lymphatic: no lymphadenopathy noted Chest Chest: normal inspection of the chest and no localized rib tenderness Breast inspection: Other (The patient was having retractions. He had mild gynecomastia) Resp Effort & Inspection: not able to speak in complete sentences, audible wheezes and prolonged expiratory phase Auscultation: wheezes Cardio Jugular venous pressure: JVD elevated Palpation: abnormal PMI Rate: regular rate Rhythm: regular rhythm Heart Sounds: S1 normal, normal, physiologic split S2, no gallops, no murmurs and no rubs Pulses: dorsalis pedis present GI Inspection: no abdominal wall ecchymosis and no visible pulsation Palpation: no hepatosplenomegaly Rectal Exam: normal sphincter tone and heme positive stool gross blood Other: His abdomen was soft and nontender. No pulsatile masses or bruits. No rebound guarding or tenderness Penis: normal penis Back/Spine/Pelvis Back: No erythema and No warmth Thoracic/Lumbar Spine: thoracic and lumbar spine normal to inspection Pelvis: no pain with anterior-posterior compression Skin General skin exam: no ecchymosis, no petechiae, no purpura and pallor Other: His skin was cool and dry and pale for ethnicity. I cannot appreciate any significant petechiae or purpura he had decreased turgor Neuro General: patient alert, patient awake, patient oriented x3 and moves all extremities Cranial Nerves: CN's II-XI intact bilaterally and PERRL Sensory Exam: no sensory deficits noted Extrem Other: Trace pedal edema. Arthritic changes in his hands. No cyanosis or clubbing. There is tenderness and swelling of the right calf. He is distal neurovascular ly intact. The calf is swollen and tender. Course The patient was discussed with Dr. Orourke the children's book author who accepted the patient for Dr. Chino Santana Reevaluation(s) Initial Evaluation: The patient became more short of breath and was started on increasing suppleme ntal oxygen and then placed on BiPAP and changed to CPAP. He also received 20 mg of IV Lasix and had over 2 L of urine output. At the time of discharge he was much improved with decrease in his respiratory rate and he was able to speak more words at a time Reevaluation: We will unable to secure a ACLS crew so [facility] came Reevaluation #2: After seeing the patient's acidosis he was given 25 g of bicarb and then started on a bicarb carb drip at the request of the children's book author at [facility] Additional Reevaluation(s): Initially the patient's oxygen saturations began to dip and he became more dyspneic. After increasing his nasal cannula we started him on BiPAP and eventually changed him to CPAP with much improvement of his symptoms. He was also found to be in acute urinary retention and a Alarcon was placed draining over 2 L of IV fluid after 20 mg of IV Lasix Consultations Consultation #1: Hospitalist who advised the patient be transferred Consultation #2: Dr. Orourke. The patient was excepted at [facility] by Dr. Santana Vital Signs Vital signs: Vital Signs Pulse 101 H 10/02/22 19:41 Respiratory Rate 25 H 10/02/22 19:41 Blood Pressure 118/75 10/02/22 19:41 Pulse Oximetry 98 10/02/22 19:41 Temperature 36.4 C L 10/03/22 03:54 Pulse 101 H 10/03/22 02:40 Pulse 98 H 10/03/22 02:40 Respiratory Rate 23 10/03/22 02:40 Respiratory Effort Short of Breath, Labored 10/02/22 19:58 Respiratory Depth Deep 10/02/22 19:58 Respiratory Pattern Tachypnea 10/02/22 19:58 Blood Pressure 125/65 10/03/22 02:30 Blood Pressure Mean 80 10/03/22 02:30 Pulse Oximetry 98 10/03/22 02:40 Respiratory End-tidal CO2 10 10/02/22 22:46 Oxygen Delivery Method Bi-pap 10/03/22 01:17 Oxygen Flow Rate 0 10/03/22 01:17 Fraction of Inspired Oxygen (FIO2) 24 10/03/22 02:40 Lab/Test Results Lab/Test Results: Laboratory Tests Range/Units 10/02/22 10/02/22 10/02/22 20:08 20:08 20:08 WBC (4.4-10.8) 10^3/uL 23.20 H RBC (4.36-5.78) 10^6/uL 2.89 L Hgb (13.5-17.5) g/dL 9.0 L Hct (40.0-50.0) % 25.3 L MCV (80-95) fL 88 MCH (27.0-33.0) pg 31.1 MCHC (32.0-36.0) % 35.6 RDW (11.8-14.1) % 12.5 Plt Count (130-400) 10^3/uL 181 MPV (8.0-11.0) fL 8.6 Immature Gran % 0.0 Neutrophils % 89.0 Band Neutrophils % 1 Lymphocytes % 2.0 Monocytes % 6.0 Eosinophils % 1.0 Basophils % 1.0 Nucleated RBC % (0.0-0.3) % 0.0 Absolute Neutrophils (1.2-6.7) 10^3/uL 20.88 H Absolute Lymphocytes (1.2-3.4) 10^3/uL 0.46 L Absolute Monocytes (0.1-0.8) 10^3/uL 1.39 H Absolute Eosinophils (0.0-0.7) 10^3/uL 0.23 Absolute Basophils (0.0-0.2) 10^3/uL 0.23 H RBC Morphology See Below Polychromasia Present PT (9.3-11.0) sec 16.5 H INR (0.9-1.1) 1.6 H APTT (21.5-31.9) sec D-Dimer (<500) ng/mlFEU 6470 H ABG Sample Site ABG pH (7.35-7.45) ABG pCO2 (35-45) mmHg ABG pO2 (80-105) mmHg ABG HCO3 (22-26) mmol/L ABG Total CO2 (23-27) mmol/L ABG O2 Saturation (95-98) % ABG Base Excess (-2-3) mmol/L Oxygen Liter Flow L FiO2 % Sodium (136-145) mmol/L Potassium (3.5-5.1) mmol/L Chloride (98-107) mmol/L Carbon Dioxide (21.0-32.0) mmol/L Anion Gap (3-11) mmol/L BUN (7-18) mg/dL Creatinine (0.70-1.30) mg/dL Est GFR (CKD-EPI 2020) (mL/min/1.73m2) Glucose (74-106) mg/dL Calcium (8.5-10.1) mg/dL Magnesium (1.8-2.4) mg/dL Total Bilirubin (0.2-1.0) mg/dL AST (15-37) U/L ALT (16-63) U/L Alkaline Phosphatase (46-116) U/L Ammonia (11-32) umol/L Troponin I (<or=60) ng/L 77 H* NT-Pro-B Natriuret Pep (<300) pg/mL Total Protein (6.4-8.2) g/dL Albumin (3.4-5.0) g/dL Lipase (16-77) U/L > 375 H COVID-19 Source SARS-CoV-2 (PCR) (Negative) Influenza Type A (PCR) (Negative) Influenza Type B (PCR) (Negative) RSV (PCR) (Negative) Patient ABO/Rh Antibody Screen Crossmatch Range/Units 10/02/22 10/02/22 10/02/22 20:08 20:08 20:08 WBC (4.4-10.8) 10^3/uL RBC (4.36-5.78) 10^6/uL Hgb (13.5-17.5) g/dL Hct (40.0-50.0) % MCV (80-95) fL MCH (27.0-33.0) pg MCHC (32.0-36.0) % RDW (11.8-14.1) % Plt Count (130-400) 10^3/uL MPV (8.0-11.0) fL Immature Gran % Neutrophils % Band Neutrophils % Lymphocytes % Monocytes % Eosinophils % Basophils % Nucleated RBC % (0.0-0.3) % Absolute Neutrophils (1.2-6.7) 10^3/uL Absolute Lymphocytes (1.2-3.4) 10^3/uL Absolute Monocytes (0.1-0.8) 10^3/uL Absolute Eosinophils (0.0-0.7) 10^3/uL Absolute Basophils (0.0-0.2) 10^3/uL RBC Morphology Polychromasia PT (9.3-11.0) sec INR (0.9-1.1) APTT (21.5-31.9) sec 43.2 H D-Dimer (<500) ng/mlFEU ABG Sample Site ABG pH (7.35-7.45) ABG pCO2 (35-45) mmHg ABG pO2 (80-105) mmHg ABG HCO3 (22-26) mmol/L ABG Total CO2 (23-27) mmol/L ABG O2 Saturation (95-98) % ABG Base Excess (-2-3) mmol/L Oxygen Liter Flow L FiO2 % Sodium (136-145) mmol/L 139 Potassium (3.5-5.1) mmol/L 5.1 Chloride (98-107) mmol/L 100 Carbon Dioxide (21.0-32.0) mmol/L < 5.0 L* Anion Gap (3-11) mmol/L 34.27468 H BUN (7-18) mg/dL 188 H* Creatinine (0.70-1.30) mg/dL 22.8 H* Est GFR (CKD-EPI 2020) (mL/min/1.73m2) 1.96 Glucose (74-106) mg/dL 111 H Calcium (8.5-10.1) mg/dL 8.1 L Magnesium (1.8-2.4) mg/dL Total Bilirubin (0.2-1.0) mg/dL 0.5 AST (15-37) U/L 40 H ALT (16-63) U/L 22 Alkaline Phosphatase (46-116) U/L 127 H Ammonia (11-32) umol/L Troponin I (<or=60) ng/L NT-Pro-B Natriuret Pep (<300) pg/mL Total Protein (6.4-8.2) g/dL 7.4 Albumin (3.4-5.0) g/dL 3.3 L Lipase (16-77) U/L COVID-19 Source SARS-CoV-2 (PCR) (Negative) Influenza Type A (PCR) (Negative) Influenza Type B (PCR) (Negative) RSV (PCR) (Negative) Patient ABO/Rh O Positive Antibody Screen NEGATIVE Crossmatch See Detail Range/Units 10/02/22 10/02/22 10/02/22 20:08 20:18 22:54 WBC (4.4-10.8) 10^3/uL RBC (4.36-5.78) 10^6/uL Hgb (13.5-17.5) g/dL Hct (40.0-50.0) % MCV (80-95) fL MCH (27.0-33.0) pg MCHC (32.0-36.0) % RDW (11.8-14.1) % Plt Count (130-400) 10^3/uL MPV (8.0-11.0) fL Immature Gran % Neutrophils % Band Neutrophils % Lymphocytes % Monocytes % Eosinophils % Basophils % Nucleated RBC % (0.0-0.3) % Absolute Neutrophils (1.2-6.7) 10^3/uL Absolute Lymphocytes (1.2-3.4) 10^3/uL Absolute Monocytes (0.1-0.8) 10^3/uL Absolute Eosinophils (0.0-0.7) 10^3/uL Absolute Basophils (0.0-0.2) 10^3/uL RBC Morphology Polychromasia PT (9.3-11.0) sec INR (0.9-1.1) APTT (21.5-31.9) sec D-Dimer (<500) ng/mlFEU ABG Sample Site ABG pH (7.35-7.45) ABG pCO2 (35-45) mmHg ABG pO2 (80-105) mmHg ABG HCO3 (22-26) mmol/L ABG Total CO2 (23-27) mmol/L ABG O2 Saturation (95-98) % ABG Base Excess (-2-3) mmol/L Oxygen Liter Flow L FiO2 % Sodium (136-145) mmol/L Potassium (3.5-5.1) mmol/L Chloride (98-107) mmol/L Carbon Dioxide (21.0-32.0) mmol/L Anion Gap (3-11) mmol/L BUN (7-18) mg/dL Creatinine (0.70-1.30) mg/dL Est GFR (CKD-EPI 2020) (mL/min/1.73m2) Glucose (74-106) mg/dL Calcium (8.5-10.1) mg/dL Magnesium (1.8-2.4) mg/dL 2.6 H Total Bilirubin (0.2-1.0) mg/dL AST (15-37) U/L ALT (16-63) U/L Alkaline Phosphatase (46-116) U/L Ammonia (11-32) umol/L 95 H Troponin I (<or=60) ng/L NT-Pro-B Natriuret Pep (<300) pg/mL 08211 H Total Protein (6.4-8.2) g/dL Albumin (3.4-5.0) g/dL Lipase (16-77) U/L COVID-19 Source Nasopharynx SARS-CoV-2 (PCR) (Negative) Negative Influenza Type A (PCR) (Negative) Negative Influenza Type B (PCR) (Negative) Negative RSV (PCR) (Negative) Negative Patient ABO/Rh Antibody Screen Crossmatch Range/Units 10/03/22 10/03/22 10/03/22 00:00 00:36 01:20 WBC (4.4-10.8) 10^3/uL RBC (4.36-5.78) 10^6/uL Hgb (13.5-17.5) g/dL Hct (40.0-50.0) % MCV (80-95) fL MCH (27.0-33.0) pg MCHC (32.0-36.0) % RDW (11.8-14.1) % Plt Count (130-400) 10^3/uL MPV (8.0-11.0) fL Immature Gran % Neutrophils % Band Neutrophils % Lymphocytes % Monocytes % Eosinophils % Basophils % Nucleated RBC % (0.0-0.3) % Absolute Neutrophils (1.2-6.7) 10^3/uL Absolute Lymphocytes (1.2-3.4) 10^3/uL Absolute Monocytes (0.1-0.8) 10^3/uL Absolute Eosinophils (0.0-0.7) 10^3/uL Absolute Basophils (0.0-0.2) 10^3/uL RBC Morphology Polychromasia PT (9.3-11.0) sec INR (0.9-1.1) APTT (21.5-31.9) sec D-Dimer (<500) ng/mlFEU ABG Sample Site Left Radial ABG pH (7.35-7.45) 6.95 L* ABG pCO2 (35-45) mmHg 22 L ABG pO2 (80-105) mmHg 80 ABG HCO3 (22-26) mmol/L 5 L ABG Total CO2 (23-27) mmol/L 5 L ABG O2 Saturation (95-98) % 92 L ABG Base Excess (-2-3) mmol/L -27 L Oxygen Liter Flow L BIPAP 10/5 FiO2 % 21 Sodium (136-145) mmol/L Potassium (3.5-5.1) mmol/L Chloride (98-107) mmol/L Carbon Dioxide (21.0-32.0) mmol/L Anion Gap (3-11) mmol/L BUN (7-18) mg/dL Creatinine (0.70-1.30) mg/dL Est GFR (CKD-EPI 2020) (mL/min/1.73m2) Glucose (74-106) mg/dL Calcium (8.5-10.1) mg/dL Magnesium (1.8-2.4) mg/dL Total Bilirubin (0.2-1.0) mg/dL AST (15-37) U/L ALT (16-63) U/L Alkaline Phosphatase (46-116) U/L Ammonia (11-32) umol/L Troponin I (<or=60) ng/L Cancelled 83 H* NT-Pro-B Natriuret Pep (<300) pg/mL Total Protein (6.4-8.2) g/dL Albumin (3.4-5.0) g/dL Lipase (16-77) U/L COVID-19 Source SARS-CoV-2 (PCR) (Negative) Influenza Type A (PCR) (Negative) Influenza Type B (PCR) (Negative) RSV (PCR) (Negative) Patient ABO/Rh Antibody Screen Crossmatch Range/Units 10/03/22 10/03/22 02:06 02:15 WBC (4.4-10.8) 10^3/uL RBC (4.36-5.78) 10^6/uL Hgb (13.5-17.5) g/dL Hct (40.0-50.0) % MCV (80-95) fL MCH (27.0-33.0) pg MCHC (32.0-36.0) % RDW (11.8-14.1) % Plt Count (130-400) 10^3/uL MPV (8.0-11.0) fL Immature Gran % Neutrophils % Band Neutrophils % Lymphocytes % Monocytes % Eosinophils % Basophils % Nucleated RBC % (0.0-0.3) % Absolute Neutrophils (1.2-6.7) 10^3/uL Absolute Lymphocytes (1.2-3.4) 10^3/uL Absolute Monocytes (0.1-0.8) 10^3/uL Absolute Eosinophils (0.0-0.7) 10^3/uL Absolute Basophils (0.0-0.2) 10^3/uL RBC Morphology Polychromasia PT (9.3-11.0) sec INR (0.9-1.1) APTT (21.5-31.9) sec D-Dimer (<500) ng/mlFEU ABG Sample Site Cancelled Left Radial ABG pH (7.35-7.45) Cancelled 7.03 L* ABG pCO2 (35-45) mmHg Cancelled 18 L* ABG pO2 (80-105) mmHg Cancelled 122 H ABG HCO3 (22-26) mmol/L Cancelled 5 L ABG Total CO2 (23-27) mmol/L Cancelled 5 L ABG O2 Saturation (95-98) % Cancelled 98 ABG Base Excess (-2-3) mmol/L Cancelled -26 L Oxygen Liter Flow L Cancelled BIPAP 10/5 FiO2 % Cancelled 28 Sodium (136-145) mmol/L Potassium (3.5-5.1) mmol/L Chloride (98-107) mmol/L Carbon Dioxide (21.0-32.0) mmol/L Anion Gap (3-11) mmol/L BUN (7-18) mg/dL Creatinine (0.70-1.30) mg/dL Est GFR (CKD-EPI 2020) (mL/min/1.73m2) Glucose (74-106) mg/dL Calcium (8.5-10.1) mg/dL Magnesium (1.8-2.4) mg/dL Total Bilirubin (0.2-1.0) mg/dL AST (15-37) U/L ALT (16-63) U/L Alkaline Phosphatase (46-116) U/L Ammonia (11-32) umol/L Troponin I (<or=60) ng/L NT-Pro-B Natriuret Pep (<300) pg/mL Total Protein (6.4-8.2) g/dL Albumin (3.4-5.0) g/dL Lipase (16-77) U/L COVID-19 Source SARS-CoV-2 (PCR) (Negative) Influenza Type A (PCR) (Negative) Influenza Type B (PCR) (Negative) RSV (PCR) (Negative) Patient ABO/Rh Antibody Screen Crossmatch Critical Care Time Critical Care Time Critical Care Time: Yes Total Critical Care Time: 75 Attestation: Critical care time was spent at bedside, talking to consultants, reviewing radiographs, interpreting EKGs and gauging response to interventions
--- NOTE | 2022-10-06 17:41 | NUR.NOTE ---
Nursing Note: Nursing Note: Accessed pt chart to determine number of EKG orders. Duplicate order deleted.
== END 2022-10-03 04:01 | disposition short-term general hospital (02) ==
PROVIDERS: Emergency Provider Emergency Medicine Emergency Medical Services
DX: I21.4 Non-ST elevation (NSTEMI) myocardial infarction (principal); N17.9 Acute kidney failure, unspecified; I50.9 Heart failure, unspecified; K51.00 Ulcerative (chronic) pancolitis without complications; J18.9 Pneumonia, unspecified organism; R33.8 Other retention of urine
CPT/HCPCS: 51702; 71275; 80053; 82805; 83690; 86850; 86900; 86901; 86920; 87637; 93005; 94640; 96365; 96366; 96368; 96375; 99291; 36600; 70450; 72125; 74174; 82140; 83735; 83880; 84484; 85025; 85379; 85610; 85730; 93010; J1941; J2354; J2543; J3490; J7060; J7620; P9016

== ENCOUNTER 2023-06-15 11:04 | Outpatient (REF) | payer MEDICARE, MEDICAID, SELFPAY ==
[2023-06-15 16:14] LABS: Anion Gap 11.7 mmol/L (3-11); BUN 27 mg/dL (7-18); CO2 25.3 mmol/L (21.0-32.0); CREATININE 2.1 mg/dL (0.70-1.30); Calcium 9.3 mg/dL (8.5-10.1); Chloride 105 mmol/L (98-107); Estimated GFR 34.29 (mL/min/1.73m2); Glucose 77 mg/dL (74-106); Sodium 142 mmol/L (136-145)
== END 2023-06-15 11:05 | disposition home or self-care (01) ==
LOC: NCHCN 11:04
PROVIDERS: Visit Provider Nurse Practitioner Family
DX: N18.32 Chronic kidney disease, stage 3b (principal); E21.3 Hyperparathyroidism, unspecified; D63.1 Anemia in chronic kidney disease
CPT/HCPCS: 80048